=== PATIENT | male | born 1975 | race Caucasian/White ===

== ENCOUNTER 2018-02-05 10:47 | Day surgery (SDC) | payer OTHER ==
[~2018-02-05] VITALS: Ht 177.8 cm; Wt 78.5 kg
[~2018-02-05 10:47] MED LIST: KLONOPIN0.5 M1 PO; PROAIR HFA8.5 GM IH; SINGULAIR10 MG PO
[2018-02-05 11:49] VITALS: BP 153/88
[2018-02-05] MEDS ORDERED: COLACE100 MG PO (15:10)
[2018-02-05] MEDS ORDERED: DILAUDID4 MG PO (15:10)
[2018-02-05] MEDS ORDERED: ONDANSETRON HCL8 MG PO (15:10)
[2018-02-05 17:56] VITALS: BP 141/85
[2018-02-05 18:55] VITALS: BP 145/80
[2018-02-05 23:00] VITALS: BP 146/86
[2018-02-06 03:37] VITALS: BP 108/65
[2018-02-06 08:15] VITALS: BP 123/78
[2018-02-06 12:14] VITALS: BP 150/79
== END 2018-02-06 14:31 | disposition home or self-care (01) ==
LOC: SDC 10:47 → 2EAST 14:52 → 2SOUTH 14:52 → ENRESERV 15:10 → SDC 15:17 → ENRESERV 16:18 → 2EAST 17:31 → ENPENDDIS 02-06 → 2EAST 02-06 14:31
DX: K40.20 Bilateral inguinal hernia, without obstruction or gangrene, not specified as recurrent (principal); I10 Essential (primary) hypertension; Z87.891 Personal history of nicotine dependence; Z88.0 Allergy status to penicillin
CPT/HCPCS: 93005; C1781; G0378; J0131; J1885; J2250; J2405; J2710; J3010; J3370; J7120; J7643; S0020; S0028